=== PATIENT | male | born 1955 | race Caucasian/White ===

== ENCOUNTER 2018-01-22 07:43 | Emergency (ER) | payer BC, SELFPAY ==
[2018-01-22 07:44] VITALS: BP 144/90; PULSE 98; RESP 18; TEMP 36.3; O2SAT 96; BMI 36.6
--- NOTE | 2018-01-22 08:01 | ED.DCSUM_ITS ---
- ER Visit Summary Date of Service: 01/22/18 Chief Complaint: [] Scalp laceration History of Present Illness: The patient is a 62 M [] reports was cleaning some windows he inadvertently stood up and struck his head against the base of the window this occurred about an hour ago, he had no LOC no neck pain he denies any past history is on no medications since because of laceration Physical Examination: [] He has a 2 cm laceration to the left scalp upper parietal region. Barely breaks the skin his HEENT exam is unremarkable his neck is nontender full range of motion lungs are clear heart tones are normal abdomen soft nontender he is up about walking in the emergency room no difficulty his neurologic exams unremarkable he denies a headache Test Results: [] Emergency Department Course and Treatment: [] Signs of life-threatening intracranial injury. The laceration was sterilely prepped prepared and then closed with Steri-Strips with good results I have cautioned him related to the use the Steri-Strips wound care return for signs of infection or poor healing and otherwise follow-up with his doctor he was given head instructions we updated his tetanus Treatment Plan: [] Disposition: [] Home stable Impression: [] 2 cm scalp laceration head injury This note was generated with [employer] dictation software. It may contain incorrect words, spelling, and punctuation that were not noted in review of the chart prior to signing ED Disposition - Plan for ED Patient: Chief Complaint: Laceration Referrals: [facility] Doctor,Out of [Primary Care Provider] -
--- NOTE | 2018-01-22 08:01 | ED.DEP ---
ED Disposition - Plan for ED Patient: Chief Complaint: Laceration Instructions: ED Laceration All, ED Head Injury Closed Referrals: [facility] Doctor,Out of [Primary Care Provider] -
--- NOTE | 2018-01-22 08:03 | DCINST.ED_ITS ---
ED Disposition - Plan for ED Patient: Chief Complaint: Laceration Instructions: ED Laceration All, ED Head Injury Closed Referrals: [facility] Doctor,Out of [Primary Care Provider] -
[2018-01-22] MEDS: Diphth,Pertuss(Acell),Tet Vac 0.5 ML Vial IM (08:08)
[2018-01-22 08:13] VITALS: BP 120/72; PULSE 61; RESP 15; O2SAT 98
== END 2018-01-22 08:13 | disposition home or self-care (01) ==
LOC: ED 08:05
PROVIDERS: Emergency Provider Emergency Medicine; Family Provider Family Medicine; PCP Family Medicine
DX: S01.01XA Laceration without foreign body of scalp, initial encounter (principal); W22.8XXA Striking against or struck by other objects, initial encounter; Y93.9 Activity, unspecified; Y92.9 Unspecified place or not applicable
CPT/HCPCS: 90471; 90715; 99282

== ENCOUNTER → 2019-06-22 06:39 | Outpatient (CLI) | payer BC, SELFPAY ==
[2019-06-22 07:42] LABS: AST(SGOT) 14 U/L (15-37); Alanine Aminotransfer ALT/SGPT 19 U/L (16-61); Albumin, Serum 3.9 g/dL (3.2-5.0); Alkaline Phosphatase 60 U/L (45-117); Bilirubin, Direct 0.19 mg/dL (0.00-0.30); Globulin 3.4 g/dL (2.2-4.2); Lipase 140 U/L (73-393); Protein, Total 7.3 g/dL (6.4-8.2)
== END ==
PROVIDERS: Family Provider Family Medicine; PCP Family Medicine; Referring Provider Internal Medicine Gastroenterology; Visit Provider Internal Medicine Gastroenterology
DX: K21.9 Gastro-esophageal reflux disease without esophagitis (principal); Z86.010 Personal history of colon polyps; E66.3 Overweight; R10.13 Epigastric pain
CPT/HCPCS: 36415; 80076; 83690

== ENCOUNTER → 2019-12-28 15:58 | Outpatient (CLI) | payer BC, SELFPAY ==
[2019-12-28 18:24] LABS: AST(SGOT) 18 U/L (15-37); Alanine Aminotransfer ALT/SGPT 25 U/L (16-61); Albumin, Serum 3.7 g/dL (3.2-5.0); Alkaline Phosphatase 63 U/L (45-117); Bilirubin, Direct 0.17 mg/dL (0.00-0.30); Globulin 3.7 g/dL (2.2-4.2); Lipase 192 U/L (73-393); Protein, Total 7.4 g/dL (6.4-8.2)
== END ==
PROVIDERS: PCP Family Medicine; Referring Provider Internal Medicine Gastroenterology; Visit Provider Internal Medicine Gastroenterology
DX: R10.13 Epigastric pain (principal); K21.9 Gastro-esophageal reflux disease without esophagitis; Z86.010 Personal history of colon polyps; R19.7 Diarrhea, unspecified
CPT/HCPCS: 36415; 80076; 83690

== ENCOUNTER → 2020-02-26 07:27 | Outpatient (CLI) | payer BC, SELFPAY ==
[2020-02-26 08:32] LABS: Thyroid Stim Hormone (TSH) 7.15 uIU/mL (0.358-3.74)
[2020-02-26 09:45] LABS: Vitamin B12 287 pg/mL (211-911)
[2020-02-29 04:31] LABS: Rapid Plasmin Reagin (RPR) NONREACTIVE (NONREACTIVE)
== END ==
PROVIDERS: PCP Family Medicine
DX: R41.89 Other symptoms and signs involving cognitive functions and awareness (principal)
CPT/HCPCS: 36415; 82607; 84443; 86592